=== PATIENT | female | born 1985 | race Caucasian/White ===

== ENCOUNTER 2017-05-05 10:47 | Emergency (ER) | payer OTHER ==
[~2017-05-05] VITALS: Ht 162.6 cm; Wt 129.3 kg
--- NOTE | ~2017-05-05 | CR181 ---
[facility] A Service of [facility] RADIOLOGY TEXT RESULTS PATIENT: CHRISTOPHER TRACY LOCATION: [facility] : 89 UNIT #: [id number] AGE: [address]: Gabbie Castellon SEX: F ORDER DR: [id number] [facility]. [place], [place] [address] [id number] MR#: [id number] #: [id number] NAME: CHRISTOPHER TRACY : 1985 SEX: F STUDY DATE/TIME: 05/05/2017 11:39 UNIT: [facility] ROOM: STUDY DESCRIPTION: CR Lumbar Spine 2 or 3 Views Attending Physician: Gabbie Castellon P.A.-C. Ordering Physician: Gabbie Castellon P.A.-C. Primary Care Physician: Primary Care Physician No MEDICAL IMAGING REPORT This report is preliminary unless electronic signature is present EXAM Lumbar spine series, 05/05/2017 1139 hours HISTORY 31-year-old with right-sided lower back pain for 2.5 weeks. No known injury. COMPARISON None. FINDINGS AP and lateral views of the lumbar spine and a cone lateral view of the lumbosacral junction were performed. There are 5 mhp-[id number]-[id number] lumbar type vertebrae, which are normally aligned. Vertebral body and disc heights are normal. Facet joints appear normal. There is mild sclerotic change suggested at the right sacroiliac joint. IMPRESSION 1. Negative lumbar spine series. 2. Mild sclerotic changes suggested at the right sacroiliac joint. Dictated by... Otilia Mccullough M.D. THIS IS AN ELECTRONICALLY VERIFIED REPORT Otilia Mccullough M.D. at 05/06/2017 9:23 AM ERIKM/christopher TD: 05/05/2017 20:32 JOB #: [id number] [facility] A Service [facility] RADIOLOGY TEXT RESULTS PATIENT: CHRISTOPHER TRACY LOCATION: [facility] : 89 UNIT #: [id number] AGE: [address]: Gabbie Castellon SEX: F ORDER DR: MEDICAL IMAGING REPORT Page 1 of 1 COPY
[2017-05-05 12:11] LABS: URINE SOURCE CLEAN CATCH
[2017-05-05 12:23] LABS: URINE APPEARANCE CLEAR; URINE BILIRUBIN NEG (NEG); URINE BLOOD NEG (NEG); URINE COLOR YELLOW; URINE GLUCOSE NEG (NEG); URINE KETONE NEG (NEG); URINE LEUKOCYTE ESTERASE NEG (NEG); URINE NITRATE NEG (NEG); URINE PH 6.5 (5-8); URINE PROTEIN NEG (NEG); URINE SPECIFIC GRAVITY 1.012 (1.003-1.035); URINE UROBILINOGEN 0.2 MG/DL (NEG)
[2017-05-05 12:30] LABS: CULTURE INDICATED? NO
== END 2017-05-05 12:45 | disposition home or self-care (01) ==
LOC: CED 10:47 → CFTX 10:47
PROVIDERS: Physician Assistant
DX: M54.16 Radiculopathy, lumbar region (principal)
CPT/HCPCS: 72100; 81003; 84703; 96372; 99283; J1885

== ENCOUNTER 2017-06-07 09:29 | Emergency (ER) | payer OTHER ==
[~2017-06-07] VITALS: Ht 160 cm; Wt 127.0 kg
== END 2017-06-07 11:25 | disposition home or self-care (01) ==
LOC: CFTX 09:29 → CED 09:29 → CFTX 10:17
DX: D57.1 Sickle-cell disease without crisis (principal); M54.5 Low back pain; Z90.49 Acquired absence of other specified parts of digestive tract
CPT/HCPCS: 96372; 99283; J1885